=== PATIENT | male | born 1990 | race Two or more races ===

== ENCOUNTER 2025-02-06 09:27 | Emergency (ER) | payer BC, OTHER ==
[~2025-02-06] VITALS: Ht 170.2 cm; Wt 91.2 kg
[2025-02-06 09:39] VITALS: BP 142/89; TEMP 97.9
[2025-02-06 09:46] VITALS: PULSE 96; RESP 16; O2SAT 97
--- NOTE | 2025-02-06 09:57 | ED.PDOC ---
History of Present Illness(SKN HPI Comments This is a 34-year-old male who had a needlestick with a dirty insulin needle yesterday. Comes from his dad and he wants to get tested to make sure he has no communicable diseases.. Patient states the needlestick was approximately 2 seconds in do about 2 drops of blood after.. Patient has not had any previous exposures Chief Complaint: Puncture Wound Time Seen by MD: 09:52 Primary Care Provider: NONE History of Present Illness: Nurses Notes, Medications, Allergies Allergies: Coded Allergies: NO KNOWN ALLERGIES (Unverified , 02/06/25) Information Source: Patient Mode of Arrival: Ambulatory Past Medical History PAST MEDICAL HISTORY: Denies Surgical History: Denies all surgeries Social History Smoker: Cigarettes Alcohol: Occasionally Drugs: Denies Drug Use Lives In: Home Hematologic/Lymphatic: reports: others (Needlestick) All Other Systems: Reviewed and Negative Physical Exam General Appearance: No Apparent Distress, Normal HEENT: Normal ENT Inspection, PERRL/EOMI, Pharynx Normal, TMs Normal Neck: Non-Tender, Normal Inspection Respiratory: Lungs Clear, Normal Breath Sounds Cardiovascular: Regular Rate/Rhythm Breast Exam: Deferred Gastrointestinal: Non Tender, Normal Bowel Sounds Genitalia: Deferred Pelvic: Deferred Rectal: Deferred Extremities: Normal inspection, Normal range of motion Neurologic: Alert Cerebellar Function: NOT DONE Reflexes: NOT DONE Skin: Dry, Warm Lymphatic: No Adenopathy Was a procedure done? Was a procedure done?: No Differential Diagnosis (INTG) Differential Diagnosis: Abrasion X-Ray, Labs, Meds, VS Vital Signs Date Time Temp Pulse Resp B/P (MAP) Pulse Ox O2 Delivery O2 Flow Rate FiO2 02/06/25 09:46 96 16 97 Room Air 02/06/25 09:39 97.9 96 16 142/89 (106) 97 97.9 02/06/25 09:34 97.9 96 16 142/89 (106) 97 97.9 Lab Test 02/06/25 09:57 Range/Units Hepatitis B Surface Antigen Pending Hepatitis B Surface Antibody Pending Hepatitis C Antibody Pending HIV (1&2) Antibody Pending X-Ray, Labs, Meds, VS Comment Patient seen and examined by me. Patient is post exposure from an insulin needle stick from his dad. He just wants to be tested for post exposure blood work to make sure he does not have any communicable disease. I told the patient blood work would be done today, I also told him the results take about 3 4 days. I told him if he does not hear anything from us within the next 7 days he can call us but no news is good news.. Time of 1ST Reevaluation: 09:56 Reevaluation 1ST: Unchanged Patient Education/Counseling: Diagnosis, Treatment, Prognosis, Need For Follow Up Family Education/Counseling: No Family Present Departure 1 Departure Time of Disposition: 10:20 Impression: Primary Impression: Exposure to blood-borne pathogen Additional Impression: Patient exposure to blood Disposition: 01 HOME / SELF CARE / HOMELESS Condition: Good Additional Instructions: Results will take about 3 days to come in If you do not hear from us within a week please feel free to call their hospital with the results Depending on your results you might need further blood work. Discharged With: Self Critical Care Note Critical Care Time?: No Stability Stability form required: NICOLE Avina Feb 06, 2025 09:57
[2025-02-07 11:06] LABS: Hepatitis B Surface Antibody Negative (Negative); Hepatitis B Surface Antigen Negative (Negative)
== END 2025-02-06 10:24 | disposition home or self-care (01) ==
LOC: ER 09:27
DX: Z77.21 Contact with and (suspected) exposure to potentially hazardous body fluids (principal); F17.210 Nicotine dependence, cigarettes, uncomplicated
CPT/HCPCS: 36415; 86703; 86706; 86803; 87340